=== PATIENT | male | born 1990 | race Caucasian/White ===

== ENCOUNTER 2017-03-07 04:57 | Emergency (ER) | payer OTHER ==
[2017-03-07] MEDS ORDERED: Ondansetron 4 MG/2 ML SDV IVPUSH ONE (05:07)
[2017-03-07] MEDS ORDERED: Ketorolac 30 MG/ML SDV IVPUSH ONE (05:09)
[2017-03-07] MEDS ORDERED: Sodium Chloride 0.9% 1,000 ML IV SCH (05:15)
[2017-03-07 05:42] LABS: CHLORIDE,CL 107 mmol/L (98-110); SODIUM,NA 141 mmol/L (136-146)
--- NOTE | 2017-03-07 06:24 | EDM.PDOC ---
ED HPI GENERAL MEDICAL PROBLEM - General Chief Complaint: Abdominal Pain Stated Complaint: ABDOMINAL PAIN Time Seen by Provider: 03/07/17 06:22 - History of Present Illness INITIAL COMMENTS - FREE TEXT/NARRATIVE: HISTORY AND PHYSICAL: History of present illness: Patient is a 27-year-old white male presents with a concern of abdominal pain this is right-sided with associated nausea vomiting 1 this morning he had a prior cholecystectomy approximately one year prior to arrival he denies fever chills diarrhea or other complaints he denies trauma Review of systems: As per history of present illness and below otherwise all systems reviewed and negative. Past medical history: As per history of present illness and as reviewed below otherwise noncontributory. Surgical history: As per history of present illness and as reviewed below otherwise noncontributory. Social history: No reported history of drug or alcohol abuse. Family history: As per history of present illness and as reviewed below otherwise noncontributory. Physical exam: HEENT: Atraumatic, normocephalic, pupils reactive, negative for conjunctival pallor or scleral icterus, mucous membranes moist, throat clear, neck supple, nontender, trachea midline. Lungs: Clear to auscultation, breath sounds equal bilaterally, chest nontender. Heart: S1S2, regular, negative for clicks, rubs, or JVD. Abdomen: Soft, nondistended, no localized tenderness. Negative for masses or hepatosplenomegaly. Negative for costovertebral tenderness. Pelvis: Stable nontender. Genitourinary: Deferred. Rectal: Deferred. Extremities: Atraumatic, negative for cords or calf pain. Neurovascular unremarkable. Neuro: Awake, alert, oriented. Cranial nerves II through XII unremarkable. Cerebellum unremarkable. Motor and sensory unremarkable throughout. Exam nonfocal. Diagnostics: CBC CMP UA CT abdomen and pelvis Therapeutics: Normal saline 1 L bolus Toradol 30 mg IV Zofran 4 mg IV Impression: #1 abdominal pain Definitive disposition and diagnosis as appropriate pending reevaluation and review of above. RLQ Pain Score (Numeric/FACES): 9 - Related Data Allergies Allergy/AdvReac Type Severity Reaction Status Date / Time No Known Allergies Allergy Verified 03/07/17 05:06 Home Meds: Home Meds . [No Known Home Meds] 03/07/17 [History] Past Medical History HEENT History: Reports: None Cardiovascular History: Reports: None Respiratory History: Reports: None Musculoskeletal History: Reports: None Neurological History: Reports: None Psychiatric History: Reports: None Endocrine/Metabolic History: Reports: None Hematologic History: Reports: None Oncologic (Cancer) History: Reports: None Dermatologic History: Reports: None - Infectious Disease History Infectious Disease History: Reports: None - Past Surgical History GI Surgical History: Reports: Cholecystectomy Male Surgical History: Reports: Vasectomy Social & Family History - Family History Family Medical History: Noncontributory - Tobacco Use Smoking Status *Q: Never Smoker - Recreational Drug Use Recreational Drug Use: No ED ROS GENERAL - Review of Systems Review Of Systems: ROS reveals no pertinent complaints other than HPI. ED EXAM, GENERAL - Physical Exam Exam: See Below (See dictation) Course - Vital Signs Last Recorded V/S: Last Vital Signs Temp 36.6 C 03/07/17 05:06 Pulse 56 L 03/07/17 05:06 Resp 16 03/07/17 05:06 BP 117/78 03/07/17 05:06 Pulse Ox 99 03/07/17 05:06 - Orders/Labs/Meds Orders: Active Orders 24 hr Category Date Time Status Abdomen Pelvis w Cont [CT] Stat Exams 03/07/17 05:07 Taken Sodium Chloride 0.9% [Normal Saline] 1,000 ml Med 03/07/17 05:15 Active IV ASDIRECTED Medication Orders Sodium Chloride (Normal Saline) 1,000 mls @ 999 mls/hr IV ASDIRECTED LUC Last Admin: 03/07/17 05:13 Dose: 999 mls/hr Labs: Laboratory Tests 03/07/17 03/07/17 03/07/17 Range/Units 05:16 05:16 05:16 WBC 5.20 (4.0-11.0) K/uL RBC 4.85 (4.50-5.90) M/uL Hgb 15.0 (13.0-17.0) g/dL Hct 43.8 (38.0-50.0) % MCV 90.3 (80.0-98.0) fL MCH 30.9 (27.0-32.0) pg MCHC 34.2 (31.0-37.0) g/dL RDW Std Deviation 42.5 (28.0-62.0) fl RDW Coeff of Maryellen 13 (11.0-15.0) % Plt Count 205 (150-400) K/uL MPV 10.60 (7.40-12.00) fL Neut % (Auto) 54.2 (48.0-80.0) % Lymph % (Auto) 31.5 (16.0-40.0) % [place] % (Auto) 11.0 (0.0-15.0) % Eos % (Auto) 2.9 (0.0-7.0) % Baso % (Auto) 0.4 (0.0-1.5) % Neut # (Auto) 2.8 (1.4-5.7) K/uL Lymph # (Auto) 1.6 (0.6-2.4) K/uL [place] # (Auto) 0.6 (0.0-0.8) K/uL Eos # (Auto) 0.2 (0.0-0.7) K/uL Baso # (Auto) 0.0 (0.0-0.1) K/uL Nucleated RBC % 0.0 /100WBC Nucleated RBCs # 0 K/uL Sodium 141 (136-146) mmol/L Potassium 4.1 (3.5-5.1) mmol/L Chloride 107 (98-110) mmol/L Carbon Dioxide 26 (21-31) mmol/L BUN 21 (6.0-23.0) mg/dL Creatinine 1.1 (0.6-1.5) mg/dL Est Cr Clr Drug Dosing 97.08 mL/min Estimated GFR (MDRD) > 60.0 ml/min Glucose 103 (60-110) mg/dL Calcium 8.8 (8.8-10.8) mg/dL Total Bilirubin 1.7 H (0.1-1.5) mg/dL AST 34 (5-40) IU/L ALT 27 (8-54) IU/L Alkaline Phosphatase 74 (40-150) Total Protein 7.6 (6.0-8.0) g/dL Albumin 4.8 (3.5-5.0) g/dL Globulin 2.8 (2.0-3.5) g/dL Albumin/Globulin Ratio 1.7 (1.3-2.8) Urine Color YELLOW Urine Appearance CLEAR Urine pH 6.0 (5.0-8.0) Ur Specific [place] >= 1.030 (1.001-1.035) Urine Protein TRACE (NEGATIVE) mg/dL Urine Glucose (UA) NEGATIVE (NEGATIVE) mg/dL Urine Ketones NEGATIVE (NEGATIVE) mg/dL Urine Occult Blood NEGATIVE (NEGATIVE) Urine Nitrite NEGATIVE (NEGATIVE) Urine Bilirubin NEGATIVE (NEGATIVE) Urine Urobilinogen 0.2 (<2.0) EU/dL Ur Leukocyte Esterase NEGATIVE (NEGATIVE) Urine RBC 0-2 (0-2/HPF) Urine WBC 0-2 (0-5/HPF) Ur Epithelial Cells FEW (NONE-FEW) Urine Bacteria FEW (NEGATIVE) Urine Mucus MODERATE (NONE-MOD) Meds: Medications Generic Name Dose Route Start Last Admin Trade Name Freq PRN Reason Stop Dose Admin Sodium Chloride 1,000 mls @ 999 mls/hr 03/07/17 05:15 03/07/17 05:13 Normal Saline IV 999 mls/hr ASDIRECTED LUC Administration Discontinued Medications Generic Name Dose Route Start Last Admin Trade Name Freq PRN Reason Stop Dose Admin Ketorolac Tromethamine 30 mg 03/07/17 05:09 03/07/17 05:15 Toradol IVPUSH 03/07/17 05:10 30 mg ONETIME ONE Administration Ondansetron HCl 4 mg 03/07/17 05:07 03/07/17 05:14 Zofran IVPUSH 03/07/17 05:08 4 mg ONETIME ONE Administration Departure - Departure Time of Disposition: 06:43 Disposition: Home, Self-Care 01 Condition: good Clinical Impression: Abdominal pain - Discharge Information Forms: ED Department Discharge Additional Instructions: The following information is given to patients seen in the emergency department who are being discharged to home. This information is to outline your options for follow-up care. We provide all patients seen in our emergency department with a follow-up referral. The need for follow-up, as well as the timing and circumstances, are variable depending upon the specifics of your emergency department visit. If you don't have a primary care physician on staff, we will provide you with a referral. We always advise you to contact your personal physician following an emergency department visit to inform them of the circumstance of the visit and for follow-up with them and/or the need for any referrals to a consulting specialist. The emergency department will also refer you to a specialist when appropriate. This referral assures that you have the opportunity for followup care with a specialist. All of these measure are taken in an effort to provide you with optimal care, which includes your followup. Under all circumstances we always encourage you to contact your private physician who remains a resource for coordinating your care. When calling for followup care, please make the office aware that this follow-up is from your recent emergency room visit. If for any reason you are refused follow-up, please contact the [facility] emergency department at and asked to speak to the emergency department charge nurse. Push fluids clear liquids follow-up primary medical doctor 1-2 days return as needed as discussed - My Orders Last 24 Hours: My Active Orders 03/07/17 05:07 Abdomen Pelvis w Cont [CT] Stat 03/07/17 05:15 Sodium Chloride 0.9% [Normal Saline] 1,000 ml IV ASDIRECTED - Assessment/Plan Last 24 Hours: My Active Orders 03/07/17 05:07 Abdomen Pelvis w Cont [CT] Stat 03/07/17 05:15 Sodium Chloride 0.9% [Normal Saline] 1,000 ml IV ASDIRECTED
[2017-03-07] MEDS ORDERED: Iopamidol 755 MG/ML 500 ML Multipack Bottle IVPUSH STA (06:48)
[2017-03-07 06:58] VITALS: BP 107/62
--- NOTE | 2017-03-07 10:31 | CT ---
EXAM DATE: 03/07/17 PATIENT'S AGE: 27 Patient: MAU SCHULER Facility: [place], [place] Site . Site : 1990 Study: CT Abdomen/Pelvis [id number]/6/2017 6:23:40 AM Ordering Physician: Doctor Pedroza Final Report: INDICATION: Right lower quadrant pain. Nausea and vomiting. Technique: CT abdomen and pelvis performed after IV contrast injection. Findings: Healing left lower posterior rib fracture with some adjacent soft tissue swelling and pleural reaction. Tiny area of linear and nodular opacity in the right middle lobe benign. Cholecystectomy with mild diffuse intrahepatic biliary dilatation. The abdominal inferior vena cava is moderately prominent in caliber. The appendix is normal. Cystic change in the seminal vesicles which are mildly prominent. Mild to moderate amounts of stool in the colon. Mild increased density along the mesenteric vessels and centrally very nonspecific. Remainder negative. Impression: 1. No acute disease in abdomen or pelvis. The appendix is normal. 2. Cholecystectomy with mild biliary dilatation. 3. Healing left lower posterior rib fracture with adjacent mild soft tissue swelling and pleural reaction. Other findings as above. Please note that all CT scans at this facility use dose modulation, iterative reconstruction, and/or weight-based dosing when appropriate to reduce radiation dose to as low as reasonably achievable. Dictated by Nolberto Dorantes MD @ Mar 07 2017 6:34AM (Electronic Signature) Report Signed by Proxy. HADLEY
== END 2017-03-07 06:59 | disposition home or self-care (01) ==
LOC: MW.ED 04:57
DX: R10.31 Right lower quadrant pain (principal); Z90.49 Acquired absence of other specified parts of digestive tract
CPT/HCPCS: 36415; 74177; 80053; 81001; 85025; 96361; 96374; 96375; 99284; J1885; J2405; J7040; Q9967

== ENCOUNTER 2018-12-17 05:37 | Emergency (ER) | payer SELFPAY ==
[2018-12-17] MEDS ORDERED: Ketorolac 30 MG/ML SDV IVPUSH ONE (05:55)
[2018-12-17] MEDS ORDERED: Ondansetron 4 MG/2 ML SDV IVPUSH ONE (05:55)
--- NOTE | 2018-12-17 06:39 | CR ---
INDICATION: Shortness of breath. COMPARISON: none TECHNIQUE: Two view chest. FINDINGS: The lungs are clear. There is no evidence of pneumothorax. The heart, mediastinum and pulmonary vessels are of normal size. There is no evidence of pleural fluid. IMPRESSION: Negative chest. Dictated by Kannan Marrufo MD @ Dec 17 2018 6:38AM Signed by Dr. Kannan Marrufo @ Dec 17 2018 6:39AM
[2018-12-17 06:45] LABS: CHLORIDE,CL 106 mmol/L (98-107); SODIUM,NA 144 mmol/L (136-148)
[2018-12-17] MEDS ORDERED: Sodium Chloride 0.9% 1,000 ML IV ONE (07:09)
[2018-12-17] MEDS ORDERED: Pantoprazole 40 MG Vial IVPUSH ONE (07:11)
--- NOTE | 2018-12-17 07:24 | EDM.PDOC ---
ED HPI GENERAL MEDICAL PROBLEM - General Chief Complaint: Chest Pain Stated Complaint: CHEST PAIN Time Seen by Provider: 12/17/18 07:23 Source of Information: Reports: Patient - History of Present Illness INITIAL COMMENTS - FREE TEXT/NARRATIVE: HISTORY AND PHYSICAL: History of present illness: []Presents with abdominal pain and vomiting which began this morning is 3 out of 10 left-sided chest pain with no radiation arm neck or jaw no diaphoresis shortness of breath Abdominal pain is also mild 2-3 out of 10 nonradiating right lower quadrant Review of systems: As per history of present illness and below otherwise all systems reviewed and negative. Past medical history: As per history of present illness and as reviewed below otherwise noncontributory. Surgical history: As per history of present illness and as reviewed below otherwise noncontributory. Social history: No reported history of drug or alcohol abuse. Family history: As per history of present illness and as reviewed below otherwise noncontributory. Physical exam: HEENT: Atraumatic, normocephalic, pupils reactive, negative for conjunctival pallor or scleral icterus, mucous membranes moist, throat clear, neck supple, nontender, trachea midline. Lungs: Clear to auscultation, breath sounds equal bilaterally, chest nontender along rib margins however there is some tenderness over left pectoralis major with associated muscle spasm. Heart: S1S2, regular, negative for clicks, rubs, or JVD. Abdomen: Soft, nondistended, tender on deep palpation in right lower quadrant no guarding or rebound. Negative for masses or hepatosplenomegaly. Negative for costovertebral tenderness. Pelvis: Stable nontender. Genitourinary: Deferred. Rectal: Deferred. Extremities: Atraumatic, negative for cords or calf pain. Neurovascular unremarkable. Neuro: Awake, alert, oriented. Cranial nerves II through XII unremarkable. Cerebellum unremarkable. Motor and sensory unremarkable throughout. Exam nonfocal. Diagnostics: [CBC CMP troponin lipase UA Chest [address] abdomen pelvis with contrast ] Therapeutics: [] normal saline Proton X Toradol Zofran Cipro Zofran Impression: []vomiting resolved Mesenteric adenitis Chest wall pain/muscle spasm Definitive disposition and diagnosis as appropriate pending reevaluation and review of above. chest Pain Score (Numeric/FACES): 3 - Related Data Allergies Allergy/AdvReac Type Severity Reaction Status Date / Time No Known Allergies Allergy Verified 12/17/18 05:45 Home Meds: Home Meds . [No Known Home Meds] 03/07/17 [History] Past Medical History HEENT History: Reports: None Cardiovascular History: Reports: None Respiratory History: Reports: None Musculoskeletal History: Reports: None Neurological History: Reports: None Psychiatric History: Reports: None Endocrine/Metabolic History: Reports: None Hematologic History: Reports: None Oncologic (Cancer) History: Reports: None Dermatologic History: Reports: None - Infectious Disease History Infectious Disease History: Reports: None - Past Surgical History HEENT Surgical History: Reports: Tonsillectomy GI Surgical History: Reports: Cholecystectomy Male Surgical History: Reports: Vasectomy Social & Family History - Family History Family Medical History: Noncontributory - Tobacco Use Smoking Status *Q: Never Smoker - Recreational Drug Use Recreational Drug Use: No ED ROS GENERAL - Review of Systems Review Of Systems: See Below ED EXAM, GENERAL - Physical Exam Exam: See Below Course - Vital Signs Last Recorded V/S: Last Vital Signs Temp 97 F 12/17/18 05:37 Pulse 56 L 12/17/18 05:37 Resp 18 12/17/18 05:37 BP 115/75 12/17/18 05:37 Pulse Ox 99 12/17/18 05:37 - Orders/Labs/Meds Orders: Active Orders 24 hr Category Date Time Status EKG 12 Lead [EKG Documentation Completion] [RC] STAT Care 12/17/18 05:55 Active Labs: Laboratory Tests 12/17/18 12/17/18 12/17/18 Range/Units 05:45 05:45 07:16 WBC 5.07 (4.0-11.0) K/uL RBC 4.93 (4.50-5.90) M/uL Hgb 15.5 (13.0-17.0) g/dL Hct 43.8 (38.0-50.0) % MCV 88.8 (80.0-98.0) fL MCH 31.4 (27.0-32.0) pg MCHC 35.4 (31.0-37.0) g/dL RDW Std Deviation 40.6 (28.0-62.0) fl RDW Coeff of Maryellen 13 (11.0-15.0) % Plt Count 190 (150-400) K/uL MPV 10.60 (7.40-12.00) fL Neut % (Auto) 62.5 (48.0-80.0) % Lymph % (Auto) 25.2 (16.0-40.0) % [place] % (Auto) 9.3 (0.0-15.0) % Eos % (Auto) 3.0 (0.0-7.0) % Baso % (Auto) 0.0 (0.0-1.5) % Neut # (Auto) 3.2 (1.4-5.7) K/uL Lymph # (Auto) 1.3 (0.6-2.4) K/uL [place] # (Auto) 0.5 (0.0-0.8) K/uL Eos # (Auto) 0.2 (0.0-0.7) K/uL Baso # (Auto) 0.0 (0.0-0.1) K/uL Nucleated RBC % 0.0 /100WBC Nucleated RBCs # 0 K/uL Sodium 144 (136-148) mmol/L Potassium 4.3 (3.5-5.1) mmol/L Chloride 106 (98-107) mmol/L Carbon Dioxide 28.9 (21.0-32.0) mmol/L BUN 18 (7.0-18.0) mg/dL Creatinine 1.2 (0.8-1.3) mg/dL Est Cr Clr Drug Dosing 97.22 mL/min Estimated GFR (MDRD) > 60.0 ml/min Glucose 103 (74-106) mg/dL Calcium 8.6 (8.5-10.1) mg/dL Total Bilirubin 1.4 H (0.2-1.0) mg/dL AST 14 L (15-37) IU/L ALT 20 (14-63) IU/L Alkaline Phosphatase 50 (46-116) U/L Troponin I < 0.050 (0.000-0.056) ng/mL Total Protein 7.3 (6.4-8.2) g/dL Albumin 3.9 (3.4-5.0) g/dL Globulin 3.4 (2.6-4.0) g/dL Albumin/Globulin Ratio 1.1 (0.9-1.6) Lipase 56 L (73-393) U/L Urine Color Urine Appearance Urine pH (5.0-8.0) Ur Specific [place] (1.001-1.035) Urine Protein (NEGATIVE) mg/dL Urine Glucose (UA) (NEGATIVE) mg/dL Urine Ketones (NEGATIVE) mg/dL Urine Occult Blood (NEGATIVE) Urine Nitrite (NEGATIVE) Urine Bilirubin (NEGATIVE) Urine Urobilinogen (<2.0) EU/dL Ur Leukocyte Esterase (NEGATIVE) 12/17/18 Range/Units 08:31 WBC (4.0-11.0) K/uL RBC (4.50-5.90) M/uL Hgb (13.0-17.0) g/dL Hct (38.0-50.0) % MCV (80.0-98.0) fL MCH (27.0-32.0) pg MCHC (31.0-37.0) g/dL RDW Std Deviation (28.0-62.0) fl RDW Coeff of Maryellen (11.0-15.0) % Plt Count (150-400) K/uL MPV (7.40-12.00) fL Neut % (Auto) (48.0-80.0) % Lymph % (Auto) (16.0-40.0) % [place] % (Auto) (0.0-15.0) % Eos % (Auto) (0.0-7.0) % Baso % (Auto) (0.0-1.5) % Neut # (Auto) (1.4-5.7) K/uL Lymph # (Auto) (0.6-2.4) K/uL [place] # (Auto) (0.0-0.8) K/uL Eos # (Auto) (0.0-0.7) K/uL Baso # (Auto) (0.0-0.1) K/uL Nucleated RBC % /100WBC Nucleated RBCs # K/uL Sodium (136-148) mmol/L Potassium (3.5-5.1) mmol/L Chloride (98-107) mmol/L Carbon Dioxide (21.0-32.0) mmol/L BUN (7.0-18.0) mg/dL Creatinine (0.8-1.3) mg/dL Est Cr Clr Drug Dosing mL/min Estimated GFR (MDRD) ml/min Glucose (74-106) mg/dL Calcium (8.5-10.1) mg/dL Total Bilirubin (0.2-1.0) mg/dL AST (15-37) IU/L ALT (14-63) IU/L Alkaline Phosphatase (46-116) U/L Troponin I (0.000-0.056) ng/mL Total Protein (6.4-8.2) g/dL Albumin (3.4-5.0) g/dL Globulin (2.6-4.0) g/dL Albumin/Globulin Ratio (0.9-1.6) Lipase (73-393) U/L Urine Color YELLOW Urine Appearance CLEAR Urine pH 6.0 (5.0-8.0) Ur Specific [place] 1.025 (1.001-1.035) Urine Protein NEGATIVE (NEGATIVE) mg/dL Urine Glucose (UA) NEGATIVE (NEGATIVE) mg/dL Urine Ketones NEGATIVE (NEGATIVE) mg/dL Urine Occult Blood NEGATIVE (NEGATIVE) Urine Nitrite NEGATIVE (NEGATIVE) Urine Bilirubin NEGATIVE (NEGATIVE) Urine Urobilinogen 0.2 (<2.0) EU/dL Ur Leukocyte Esterase NEGATIVE (NEGATIVE) Meds: Medications Discontinued Medications Generic Name Dose Route Start Last Admin Trade Name Freq PRN Reason Stop Dose Admin Sodium Chloride 1,000 mls @ 999 mls/hr 12/17/18 07:09 12/17/18 07:24 Normal Saline IV 12/17/18 08:09 999 mls/hr STAT ONE Administration Ketorolac Tromethamine 30 mg 12/17/18 05:55 12/17/18 06:11 Toradol IVPUSH 12/17/18 05:56 30 mg ONETIME ONE Administration Ondansetron HCl 4 mg 12/17/18 05:55 12/17/18 06:11 Zofran IVPUSH 12/17/18 05:56 4 mg ONETIME ONE Administration Pantoprazole Sodium 80 mg 12/17/18 07:11 12/17/18 07:26 Protonix Iv IVPUSH 12/17/18 07:12 80 mg .BOLUS ONE Administration Departure - Departure Time of Disposition: 08:49 Disposition: Home, Self-Care 01 Condition: Good Clinical Impression: Mesenteric adenitis - Discharge Information Referrals: PCP,None [Primary Care Provider] - Forms: ED Department Discharge Additional Instructions: The following information is given to patients seen in the emergency department who are being discharged to home. This information is to outline your options for follow-up care. We provide all patients seen in our emergency department with a follow-up referral. The need for follow-up, as well as the timing and circumstances, are variable depending upon the specifics of your emergency department visit. If you don't have a primary care physician on staff, we will provide you with a referral. We always advise you to contact your personal physician following an emergency department visit to inform them of the circumstance of the visit and for follow-up with them and/or the need for any referrals to a consulting specialist. The emergency department will also refer you to a specialist when appropriate. This referral assures that you have the opportunity for follow-up care with a specialist. All of these measure are taken in an effort to provide you with optimal care, which includes your follow-up. Under all circumstances we always encourage you to contact your private physician who remains a resource for coordinating your care. When calling for follow-up care, please make the office aware that this follow-up is from your recent emergency room visit. If for any reason you are refused follow-up, please contact the [facility] emergency department at and asked to speak to the emergency department charge nurse.
--- NOTE | 2018-12-17 08:22 | CT ---
INDICATION: Nausea and vomiting. TECHNIQUE: A CT volumetric acquisition was performed of the abdomen and pelvis without IV contrast. FINDINGS: The lung bases are clear. The liver, spleen and pancreas appear normal. Gallbladder is been resected. Bile ducts are normal in size. The adrenal glands have normal morphology. The kidneys are symmetric in size. There is no evidence of a renal or ureteral calculus and no evidence of hydronephrosis. The abdominal aorta appears normal. The appendix is visualized on the coronal sequence and appears normal. There are several mildly enlarged lymph nodes noted within the small bowel mesenteric fat particularly within the right lower quadrant. There is no evidence of obstruction or edema within the small intestine or colon. The prostate gland and urinary bladder appear normal. There is no evidence of free fluid in the cul-de-sac. The ventral abdominal wall musculature appears intact. IMPRESSION: Radiographic findings suggest mesenteric lymphadenitis. Normal appearance of the appendix. No evidence of pancreatitis or bowel obstruction. Please note that all CT scans at this facility use dose modulation, iterative reconstruction, and/or weight-based dosing when appropriate to reduce radiation dose to as low as reasonably achievable. Dictated by Kannan Marrufo MD @ Dec 17 2018 8:01AM Signed by Dr. Kannan Marrufo @ Dec 17 2018 8:20AM
[2018-12-17 09:11] VITALS: BP 116/77
== END 2018-12-17 09:05 | disposition home or self-care (01) ==
LOC: MW.ED 05:37
DX: I88.0 Nonspecific mesenteric lymphadenitis (principal)
CPT/HCPCS: 36415; 71046; 74176; 80053; 81003; 83690; 84484; 85025; 93005; 96361; 96374; 96375; 99285; C9113; J1885; J2405; J7040